=== PATIENT | male | born 1935 | race Caucasian/White ===

== ENCOUNTER 2017-11-23 12:00 | Emergency (ER) | payer MEDICARE, BC ==
[2017-11-23 12:37] LABS: #Basophils 0.1 thou/uL (0.0-0.2); #Eosinphils 0.3 thou/uL (0.0-0.7); #Lymphocytes 1.8 thou/uL (1.20-3.40); #Monocytes 0.8 thou/uL (0.11-0.59); #Neutrophils 6.8 thou/uL (1.40-6.50); %Basophils 0.9 % (0.0-1.0); %Lymphocytes 18.5 % (21.0-51.0); %Monocytes 7.7 % (0.0-10.0); %Neutrophils 69.9 % (42.0-75.0); Hemoglobin 17.2 g/dL (14.0-18.0); Mean Corpuscular HGB CONC 34.1 g/dL (32.0-36.0); Mean Corpuscular Hemoglobin 32.5 pg (27.0-31.0); Mean Corpuscular Volume 95.5 fl (80.0-94.0); Mean Platelet Volume 6.8 fL (7.4-10.4); Platelet Count 194 thou/uL (130-400); White Blood Cell (WBC) Count 9.8 thou/uL (4.8-10.8)
[2017-11-23 12:42] LABS: Chloride 104 mmol/L (98-107); Potassium 4.1 mmol/L (3.5-5.1); Sodium 140 mmol/L (136-145)
[2017-11-23] MEDS ORDERED: Sodium Chloride 0.9% 1,000 ML ONE (12:50)
[2017-11-23] MEDS ORDERED: Meclizine HCl 25 MG TAB ONE ×2 (12:50→13:21)
[2017-11-23 12:52] LABS: CKMB 2.7 ng/mL (0-6.6)
--- NOTE | 2017-11-23 12:54 | CT ---
CT BRAIN WITHOUT CONTRAST: Date: 11/23/17 HISTORY: Dizziness. FINDINGS: There are no previous exams for comparison. No evidence of infarct, hemorrhage, midline shift, or abnormal extra-axial fluid collections are seen . There are changes of cortical atrophy and chronic small vessel ischemic disease. Bilateral basal ga nglia calcifications are present. The ventricular size is appropriate and the basilar cisterns are pa tent. The bony calvarium is intact. The visualized paranasal sinuses and mastoid air cells are well a erated. IMPRESSION: No CT evidence of acute intracranial process. POS: [facility]
--- NOTE | 2017-11-23 12:55 | RAD ---
PORTABLE CHEST ONE VIEW: Date: 11-23-17 Time: 12:33 p.m. History: Dizziness. FINDINGS: The heart size is normal. The lungs are well expanded without focal areas of consolidation, pneumotho rax, or pleural effusions. IMPRESSION: No radiographic evidence of acute cardiopulmonary process. POS: [facility]
[2017-11-23 12:59] LABS: ALT (SGPT) 59 U/L (8-55); AST (SGOT) 36 U/L (5-34); Albumin 4.2 g/dL (3.4-4.8); Alkaline Phosphatase 57 U/L (40-150); BUN (Urea Nitrogen) 25 mg/dL (8.4-25.7); Bilirubin, Total 1.1 mg/dL (0.2-1.2); Calc. Creatinine Clearance 0 mL/min (70-130); Calcium 9.3 mg/dL (7.8-10.44); Carbon Dioxide 23 mmol/L (23-31); Estimated GFR-MDRD 49; Globulin 2.9 g/dL (2.4-3.5); Glucose 204 mg/dL (83-110); Protein, Total 7.1 g/dL (5.8-8.1)
[2017-11-23 13:05] LABS: Anion Gap 17 mmol/L (10-20)
== END 2017-11-23 13:35 | disposition home or self-care (01) ==
LOC: NAV ERS 12:00
DX: R42 Dizziness and giddiness (principal); F32.9 Major depressive disorder, single episode, unspecified; Z79.899 Other long term (current) drug therapy
CPT/HCPCS: 36415; 70450; 71010; 80053; 82553; 84484; 85025; 93005; 96360; J7050